=== PATIENT | female | born 1995 | race Asian ===

== ENCOUNTER 2023-09-19 18:52 | Inpatient (IN) | payer MEDICAID, OTHER ==
[~2023-09-19] VITALS: Ht 162.6 cm; Wt 86.6 kg
[~2023-09-19 18:52] MED LIST: SERT-439 PO
[2023-09-19 22:07] LABS: ANION GAP 9 mmol/L (8-16); CALCIUM, TOTAL 8.9 mg/dL (8.8-10.5); CARBON DIOXIDE 26 mmol/L (22-29); CHLORIDE 103 mmol/L (98-107); CREATININE 0.68 mg/dL (0.60-1.30); GLOMERULAR FILTR. RATE CALC > 60 mL/min (>60); GLUCOSE,RANDOM 92 mg/dL (70-110); POTASSIUM 3.9 mmol/L (3.5-5.1); SODIUM SERUM 138 mmol/L (136-145); UREA NITROGEN, BLOOD 13 mg/dL (7-18)
[2023-09-19 22:13] LABS: ALANINE AMINOTRANSFERASE 12 U/L (12-78); ALBUMIN 3.1 g/dL (3.4-5.0); ALKALINE PHOSPHATASE 71 U/L (46-116); ASPARTATE AMINOTRANSFERASE 11 U/L (15-37); BILIRUBIN,TOTAL 0.1 mg/dL (0.1-1.0); TOTAL PROTEIN, SERUM 7.1 g/dL (6.4-8.2)
[2023-09-19 22:17] LABS: BASOPHILS % (AUTO) 0.3 % (0.0-2.0); EOSINOPHILS % (AUTO) 2.8 % (1.0-6.0); HEMOGLOBIN 12.2 g/dL (12.0-16.0); LYMPHOCYTES # (AUTO) 2.7 K/uL (1.0-4.8); LYMPHOCYTES % (AUTO) 28.9 % (22.0-44.0); MEAN CORPUSCULAR HEMOGLOBIN 26.1 pg (26.0-34.0); MEAN CORPUSCULAR HGB CONC 33.1 G/dL (31.0-37.0); MEAN CORPUSCULAR VOLUME 79 fL (80-100); MONOCYTES # (AUTO) 0.6 K/uL (0.1-1.0); MONOCYTES % (AUTO) 6.7 % (2.0-9.0); NEUTROPHILS # (AUTO) 5.7 K/uL (1.8-7.7); NEUTROPHILS % (AUTO) 61.3 % (40.0-70.0); PLATELET COUNT (AUTO) 307 K/uL (150-450); RED BLOOD CELL COUNT(AUTO) 4.68 MIL/uL (4.00-5.20); RED CELL DISTRIBUTION WIDTH 14.2 % (11.5-14.5); WHITE BLOOD COUNT (AUTO) 9.4 K/uL (4.5-11.0)
[2023-09-19 22:29] LABS: ALCOHOL, BLOOD (SERUM) < 3 mg/dL (0-10)
[2023-09-19 23:25] LABS: COVID AG,FIA SOURCE NASAL SWAB
[2023-09-19 23:41] LABS: SARS-COV2 (COVID) ANTIGEN,FIA Negative (Negative)
[2023-09-20] MEDS ORDERED: LORazepam 2 MG TABLET PO PRN (00:30)
[2023-09-20] MEDS ORDERED: HALOPERIDOL 5 MG TABLET PO PRN (00:30)
[2023-09-20] MEDS: ZOLPIDEM TARTRATE 10 MG TABLET PO PRN (02:06)
[2023-09-20 08:15] VITALS: BP 126/66; PULSE 70; RESP 18; TEMP 97.5; O2SAT 99
[2023-09-20] MEDS: SERTRALINE HCL 50 MG TABLET PO SCH (11:27)
[2023-09-20] MEDS ORDERED: INFLUENZA VIRUS VACCINE QVS 2023-24 (6MO+)/PF 60 MCG/0.5 ML SYRINGE IM. ONE (12:15)
[2023-09-20] MEDS ORDERED: CloNIDine HCL 0.1 MG TABLET PO PRN (20:45)
[2023-09-20] MEDS ORDERED: IBUPROFEN 400 MG TABLET PO PRN (20:45)
[2023-09-20] MEDS ORDERED: MAG HYDROX/ALUMINUM HYD/SIMETH ES 30 ML SUSPENSION UDCUP PO PRN (20:45)
[2023-09-20] MEDS ORDERED: LOPERAMIDE HCL 2 MG CAPSULE PO PRN (20:45)
[2023-09-20] MEDS ORDERED: DOCUSATE SODIUM 100 MG CAPSULE PO PRN (20:45)
[2023-09-20] MEDS ORDERED: NICOTINE 14 MG/24 HOUR PATCH TD PRN (20:45)
[2023-09-20] MEDS ORDERED: ONDANSETRON HCL 4 MG TABLET PO PRN (20:45)
[2023-09-20] MEDS ORDERED: GuaiFENesin/D-METHORPHAN [SUGAR-FREE] 200-20MG/10 ML SYRUP UDCUP PO PRN (20:45)
[2023-09-20] MEDS ORDERED: ALBUTEROL SULFATE HFA 90 MCG/PUFF 8 GM INHALER IH PRN (20:45)
[2023-09-20] MEDS ORDERED: ACETAMINOPHEN 325 MG TABLET PO PRN (20:45)
[2023-09-20] MEDS ORDERED: MAGNESIUM HYDROXIDE SUSPENSION 30 ML UDCUP PO PRN (20:45)
[2023-09-20] MEDS ORDERED: PETROLATUM,WHITE 28 GM JELLY TP PRN (20:45)
[2023-09-20 22:58] VITALS: BP 109/67; PULSE 69; RESP 18; TEMP 98.5; O2SAT 99
[2023-09-21 08:08] VITALS: BP 103/61; PULSE 82; RESP 17; TEMP 98; O2SAT 98
[2023-09-21 08:15] LABS: HEMOGLOBIN A1C 5.8 % (3.8-5.6)
[2023-09-21 08:32] LABS: CHOL/HDL RATIO 3.4 (3.9-5.7); THYROID STIMULATING HORMONE 2.5 uIU/mL (0.36-3.74)
[2023-09-21 19:57] VITALS: BP 105/67; PULSE 75; RESP 18; TEMP 97.7; O2SAT 98
[2023-09-21 22:32] VITALS: BP 105/67; PULSE 75; RESP 18; TEMP 97.7; O2SAT 98
[2023-09-22 08:07] VITALS: BP 109/64; PULSE 69; RESP 18; TEMP 97.6; O2SAT 100
== END 2023-09-22 11:00 | disposition home or self-care (01) | DRG 751 ==
LOC: EMS 19:10 → B2S 09-20 05:58
PROVIDERS: ADMIT Psychiatry & Neurology Child & Adolescent Psychiatry; ATTEND Psychiatry & Neurology Child & Adolescent Psychiatry
DX: F33.2 Major depressive disorder, recurrent severe without psychotic features (principal); R45.851 Suicidal ideations; Z20.822 Contact with and (suspected) exposure to COVID-19; F41.9 Anxiety disorder, unspecified; K21.9 Gastro-esophageal reflux disease without esophagitis
CPT/HCPCS: 80053; 80061; 83036; 84443; 84703; 85025; 99285; G0480